=== PATIENT | female | born 1960 | race Caucasian/White ===

== ENCOUNTER → 2016-07-05 17:20 | Outpatient (CLI) | payer BC ==
[2016-02-23 05:58] VITALS: BMI 33.3
[~2016-07-05 17:20] MED LIST: BUT/APAP/CAF CAP PO; BUTALB-APAP-CA1 EACH PO; CEPHADYN PO; CLARITIN 10 MG10 MG PO; EDARBI40 MG PO; FLEXERIL10 MG PO; GEMFIBROZIL600 MG PO; HYDROCODON-ACE1 EAC7 PO; HYDROCODONE-APA1 TAB PO; MAXZIDE-25 MG T1 TAB PO; MINOCIN100 MG PO; MINOCYCLINE PO; MULTI-DAY VITAM1 TAB PO; NEURONTIN 300300 MG PO; ORTHO-EST0.75 MG PO; RELAFEN750 MG PO; REQUIP0.25 MG PO; SINGULAIR10 MG PO; TYLENOL PM1 TAB PO; ULTRAM50 MG PO; ZANAFLEX4 MG PO
== END | disposition home or self-care (01) ==
LOC: D.MAMMO 13:15
DX: Z12.31 Encounter for screening mammogram for malignant neoplasm of breast (principal)

== ENCOUNTER 2016-08-01 05:28 | Day surgery (SDC) | payer BC ==
[~2016-08-01] VITALS: Ht 165.1 cm; Wt 91.4 kg
[2016-08-01 13:52] VITALS: BP 143/78; Ht 165.1 cm; Wt 91.4 kg
[2016-08-01] MEDS ORDERED: HYDROCODONE-APA1 TAB PO (13:55)
[2016-08-01 13:59] LABS: HEMATOCRIT 37.9 % (36.0-48.0); HEMOGLOBIN 11.9 g/dL (12-16); MCH 25.6 pg (26.0-34.0); MCHC 31.4 g/dL (31.0-37.0); MCV 81.5 fL (80.0-100.0); MEAN PLATELET VOLUME 11.7 fL (7.4-10.4); RBC 4.65 10x6/uL (4.00-5.40); RDW 13.8 % (11.5-14.5); WBC 7.4 10x3/uL (4.8-10.8)
[2016-08-01 14:45] LABS: ANION GAP 17.2 mmol/L (8-16); CARBON DIOXIDE 26.3 mmol/L (21.0-32.0); CREATININE - SERUM 0.9 mg/dL (0.6-1.3); POTASSIUM - SERUM 3.5 mmol/L (3.5-5.1)
--- NOTE | 2016-08-01 15:28 | NUR ---
1505-RECD FROM GI LAB. ALERT. DR LAU HERE TO ROUND. 1510-FULL LIQUIDS SERVED. PASSING FLATUS.
--- NOTE | 2016-08-01 15:50 | NUR ---
1510-FULL LIQUIDS SERVED. PASSING FLATUS. 1530-IV D/C, VOIDED AND DRESSED. 1540-DISCHARGE INSTRUCTIONS REVIEWED. 1545-D/C HOME.
--- NOTE | 2016-08-03 19:32 | OP ---
PATIENT NAME: AHMET SANFORD MEDICAL RECORD: [id number] :60 LOCATION:D.OPS ADMISSION DATE: SURGEON: VINNY LAU DO DATE OF OPERATION: 08/01/2016 PROCEDURE: Colonoscopy with hot forceps polypectomy. INDICATIONS: Personal history of colon polyps, left lower quadrant abdominal pain, diarrhea. SCOPE: Olympus video pediatric colonoscope. MEDICATIONS: Propofol 410 mg IV per anesthesia. WITHDRAWAL TIME: 10 minutes. ESTIMATED BLOOD LOSS: Minimal. COMPLICATIONS: None. FINDINGS: Informed consent was given. The patient was made comfortable with the above medication. After reaching an adequate level of sedation by slow IV push, the patient was placed on her left side. A digital rectal examination was performed, and was normal. The endoscope was then advanced under direct visualization through the rectum to the cecum, with visualization of the terminal ileum, ileocecal valve, and appendiceal orifice. The scope was slowly withdrawn and mucosa was carefully examined. There was a single polyp visualized on this examination located in the proximal transverse colon. It was removed with hot forceps in 1 piece and completely retrieved. There was evidence of mild pandiverticulosis. Retroflexion was performed in the rectum and the views were normal. There were no other abnormalities visualized on this examination. The scope was withdrawn from the patient. The patient tolerated the procedure well and there were no complications. IMPRESSION: 1. Single proximal transverse colon polyp measuring approximately 3 mm in diameter, removed with hot forceps. 2. Mild pandiverticulosis. PLAN AND RECOMMENDATIONS: 1. Discharge home when recovery parameters are met. 2. Continue high-fiber diet. 3. Follow up biopsy specimen results. 4. Anticipate a recall colonoscopy timeline of 5 years. 5. The patient indicates that her bowels are regular; however, if the diarrhea returns, it is okay to use Imodium as needed. Further workup can be provided if the diarrhea returns. TRANSINT:[id number] Voice Confirmation ID: [id number] DOCUMENT ID: [id number] OPERATIVE REPORT [id number] AHMET SANFORD VINNY LAU DO at 1932 CC: [id number] DICTATION DATE: 08/01/16 1501 EXPERIENCE SPECIALIST: 08/01/16 2315 [facility] 08/01/16 [place] [address]
== END 2016-08-01 15:45 | disposition home or self-care (01) ==
LOC: D.OPS 05:28
PROVIDERS: Anesthesiology
DX: D12.3 Benign neoplasm of transverse colon (principal); R19.7 Diarrhea, unspecified; R10.32 Left lower quadrant pain; J45.909 Unspecified asthma, uncomplicated; I10 Essential (primary) hypertension; J44.9 Chronic obstructive pulmonary disease, unspecified; Z87.891 Personal history of nicotine dependence; Z01.812 Encounter for preprocedural laboratory examination

== ENCOUNTER → 2016-09-21 11:07 | Outpatient (CLI) | payer BC ==
[2016-08-01 13:52] VITALS: BMI 33.5
== END | disposition home or self-care (01) ==
LOC: D.CT 11:07
DX: R51 Headache (principal)

== ENCOUNTER → 2016-11-15 14:39 | Outpatient (CLI) | payer BC ==
[2016-08-01 13:52] VITALS: BMI 33.5
== END | disposition home or self-care (01) ==
LOC: D.MRI 14:39
DX: M54.12 Radiculopathy, cervical region (principal)

== ENCOUNTER → 2017-01-31 16:02 | Outpatient (CLI) | payer BC ==
[2016-08-01 13:52] VITALS: BMI 33.5
[~2017-01-31 16:02] MED LIST changes: +ADVAIR 250/501 DISK INH; +HYDROXYZINE HCL50 MG PO; +LIPITOR10 MG PO; +MELATONIN5 MG PO; +OXYCODONE HCL10 MG PO; +PROAIR HFA8.5 GM INH
== END | disposition home or self-care (01) ==
LOC: D.MRI 16:02
DX: M75.101 Unspecified rotator cuff tear or rupture of right shoulder, not specified as traumatic (principal)

== ENCOUNTER 2017-02-24 05:18 | Day surgery (SDC) | payer BC ==
[2017-02-23 13:34] LABS: HEMATOCRIT 38.4 % (36.0-48.0); HEMOGLOBIN 12.4 g/dL (12-16); MCH 26.6 pg (26.0-34.0); MCHC 32.3 g/dL (31.0-37.0); MCV 82.4 fL (80.0-100.0); MEAN PLATELET VOLUME 11.6 fL (7.4-10.4); RBC 4.66 10x6/uL (4.00-5.40); RDW 15.7 % (11.5-14.5)
[2017-02-23 13:48] LABS: ANION GAP 15.3 mmol/L (8-16); CARBON DIOXIDE 25.6 mmol/L (21.0-32.0); POTASSIUM - SERUM 3.9 mmol/L (3.5-5.1)
[~2017-02-24] VITALS: Ht 165.1 cm; Wt 83.0 kg
--- NOTE | ~2017-02-24 | OP ---
PATIENT NAME: AHMET SANFORD MEDICAL RECORD: [id number] :60 LOCATION:[facility] ADMISSION DATE: SURGEON: RICK JOHNSTON DO DATE OF OPERATION: 02/24/2017 PROCEDURE PERFORMED: Right shoulder arthroscopy with subacromial decompression and rotator cuff repair. PREOPERATIVE DIAGNOSES: Right rotator cuff tear and subacromial impingement. POSTOPERATIVE DIAGNOSES: Subacromial impingement with a pre- acromion os acromiale and sublabral Mcleod complex and rotator cuff tear. INDICATION FOR PROCEDURE: Ms. Sanford is a 56-year-old female who has come to the office as she had right shoulder pain for quite some time, pain with lifting and anything overhead. She wanted to have surgery and have it fixed after she had the MRI, which demonstrated the tear and she was consented for the procedure in the office and then signed the consent here for surgery. DESCRIPTION OF PROCEDURE: The patient was given a block in the preoperative area and taken to the operative suite, laid in the left lateral decubitus position with the right arm up and the right arm was prepped and draped in sterile fashion. The patient was intubated and given general anesthetic, given 900 mg clindamycin preop. A timeout was then performed and everyone is in agreement to correct side, site, and patient. Then, the right arm was prepped and draped in sterile fashion and hung with 10 pounds of traction off of the boom. Once this was done, the posterior portal was established with a spinal needle and then 16 cc of normal saline were injected into the shoulder joint itself expanding it. The posterior portal was then established with an 11-blade scalpel and the trocar was placed into the shoulder joint. The camera was then entered into the shoulder joint. The Mcleod complex was noted right away. The anterior portal was then established and the bicep tendon was not seen to have any tears or fraying as well as the superior labrum; however, the Reji complex was encountered and nothing was done to it. The subscapularis tendon was inspected and seen to be in very good shape and cartilage surface of the humerus did not have any chondromalacia nor did the glenoid. The rotator cuff tear of the supraspinatus was encountered at that time and seen and pictures were taken. I then went to the subacromial space and the subacromial decompression was done. The pre-acromial os acromial was then encountered and was left in place. However, subacromial decompression was done with the stable acromion as well as a PA os acromial due to the patient not having any symptoms. This was not removed or tried to be fused at that time. The AC joint was also encountered and seemed to be wide open. There were no arthritis seen and was left alone. At this point, the lateral portal then established for the subacromial decompression. At this point, we opened with a small incision over where the lateral portal was with 15 blade and the deltoid fascia was opened with the scissors and then Army-Mansion Del Sol were used to retract the deltoid until Weitlaner was put into place and then Army-Mansion Del Sol was held superiorly. Two anchors were then put just at the articular surface of the humerus after the area had been prepared and debrided and decorticated with the shaver as her bone was very soft. Two anchors were then put into place and then the suture tapes bit the rotator cuff and then 2 lateral row anchors were used. The lateral anterior anchor was put in first. The bone seemed to be very soft and then the posterior lateral anchor was used. Limb from each of the anterior and posterior anchors previously placed were put into each respectively. Small dog ear was seen OPERATIVE REPORT [id number] AHMET SANFORD anteriorly and a suture from the anchor in the anterior lateral row was used to put a suture through the dog ear and tied down to itself and had a nice reduction. There was a nice reduction of the rotator cuff. At that point, the wound was irrigated and picture was taken with the camera and then the deltoid fascia was closed with 2-0 Vicryl and the skin was closed with 2-0 Vicryl over the open part in an inverted interrupted fashion and then 4-0 Monocryl was ran under the skin in subcuticular fashion at the over part and the two anterior and posterior portals were closed each with an inverted interrupted suture of 4-0 Monocryl and then Dermabond was placed over that. Adaptic Telfa and Tegaderm were placed over each of the sites. The patient was placed in a sling and then taken to recovery after she was awakened in stable condition. Blood loss was minimal. COMPLICATIONS: None. TRANSINT:[id number] Voice Confirmation ID: [id number] DOCUMENT ID: [id number] RICK JOHNSTON DO at 0753 CC: [id number] DICTATION DATE: 02/24/171726 U.S. SENATOR: 02/24/17 180 [facility] 02/24/17 [id number] [place] [address]
[~2017-02-24 05:18] MED LIST changes: -HYDROXYZINE HCL50 MG PO; -MELATONIN5 MG PO; -OXYCODONE HCL10 MG PO
[2017-02-24] MEDS ORDERED: MELATONIN5 MG PO (09:51)
[2017-02-24 09:52] VITALS: BP 136/73; Ht 165.1 cm; Wt 83.0 kg
[2017-02-24] MEDS ORDERED: OXYCODONE HCL10 MG PO (17:18)
[2017-02-24] MEDS ORDERED: HYDROXYZINE HCL50 MG PO (17:18)
== END 2017-02-24 19:10 | disposition home or self-care (01) ==
LOC: D.OPS 05:18 → D.PAN 12:15 → D.OPS 14:00 → D.PAN 14:00 → D.OPS 19:10
PROVIDERS: Anesthesiology
DX: M75.121 Complete rotator cuff tear or rupture of right shoulder, not specified as traumatic (principal); J45.909 Unspecified asthma, uncomplicated; I10 Essential (primary) hypertension; J44.9 Chronic obstructive pulmonary disease, unspecified; E66.9 Obesity, unspecified; Z68.30 Body mass index [BMI] 30.0-30.9, adult; Z01.812 Encounter for preprocedural laboratory examination

== ENCOUNTER → 2018-03-27 15:13 | Outpatient (CLI) | payer BC ==
[2017-02-24 09:52] VITALS: BMI 30.5
[~2018-03-27 15:13] MED LIST changes: +HYDROXYZINE HCL50 MG PO; +MELATONIN5 MG PO; +OXYCODONE HCL10 MG PO
== END | disposition home or self-care (01) ==
LOC: D.CT 15:13
DX: G43.909 Migraine, unspecified, not intractable, without status migrainosus (principal)

== ENCOUNTER → 2018-05-15 15:54 | Outpatient (CLI) | payer BC ==
[2017-02-24 09:52] VITALS: BMI 30.5
== END | disposition home or self-care (01) ==
LOC: D.MRI 15:54
PROVIDERS: ATTEND Clinical Nurse Specialist Family Health
DX: S46.012A Strain of muscle(s) and tendon(s) of the rotator cuff of left shoulder, initial encounter (principal); X58.XXXA Exposure to other specified factors, initial encounter

== ENCOUNTER → 2018-05-29 18:43 | Outpatient (CLI) | payer BC ==
[2017-02-24 09:52] VITALS: BMI 30.5
== END | disposition home or self-care (01) ==
LOC: D.MAMMO 15:30
PROVIDERS: ATTEND Clinical Nurse Specialist Family Health
DX: Z12.31 Encounter for screening mammogram for malignant neoplasm of breast (principal)

== ENCOUNTER 2018-06-05 05:10 | Day surgery (SDC) | payer BC ==
[2018-06-04 10:20] LABS: HEMATOCRIT 39.3 % (36.0-48.0); HEMOGLOBIN 12.7 g/dL (12-16); MCH 27.1 pg (26.0-34.0); MCHC 32.3 g/dL (31.0-37.0); MEAN PLATELET VOLUME 11.2 fL (7.4-10.4); RBC 4.68 10x6/uL (4.00-5.40); RDW 14.8 % (11.5-14.5); WBC 6.4 10x3/uL (4.8-10.8)
[2018-06-04 10:30] LABS: ANION GAP 14.8 mmol/L (8-16); CALCIUM 9.5 mg/dL (8.5-10.1); CARBON DIOXIDE 25.9 mmol/L (21.0-32.0); CREATININE - SERUM 0.9 mg/dL (0.6-1.3); POTASSIUM - SERUM 3.7 mmol/L (3.5-5.1)
[~2018-06-05] VITALS: Ht 170.2 cm; Wt 83.9 kg
[2018-06-05] MEDS ORDERED: SYMBICORT 16010.2 GM INH (06:12)
[2018-06-05] MEDS ORDERED: HYDROCODON-ACE1 EA10 PO (06:15)
[2018-06-05] MEDS ORDERED: NIASPAN500 MG PO (06:16)
[2018-06-05] MEDS ORDERED: FISH OIL 1,0001 CA1 PO (06:16)
[2018-06-05] MEDS ORDERED: FOLIC ACID1 MG PO (06:16)
[2018-06-05 06:19] VITALS: BP 141/66; Ht 170.2 cm; Wt 83.9 kg
[2018-06-05] MEDS ORDERED: VISTARIL50 MG PO (10:45)
[2018-06-05] MEDS ORDERED: OXYCODONE HCL5 M1 PO (10:45)
--- NOTE | 2018-06-05 12:54 | OP ---
PATIENT NAME: AHMET SANFORD MEDICAL RECORD: [id number] :60 LOCATION:[facility] ADMISSION DATE: SURGEON: ELLIOT JOHNSTON DO DATE OF OPERATION: 06/05/2018 PROCEDURE PERFORMED: Left shoulder scope with mini open rotator cuff repair, subacromial decompression, distal clavicle excision, and biceps tenodesis. PREOPERATIVE DIAGNOSES: Left shoulder rotator cuff tear, SLAP tear, subacromial impingement, and AC joint arthritis. POSTOPERATIVE DIAGNOSES: Left shoulder rotator cuff tear, SLAP tear, subacromial impingement, and AC joint arthritis. INDICATIONS: Ms. Sanford is a 57-year-old female who has had left shoulder pain for quite some time. She said it felt similar to her right shoulder. Her right shoulder she had a rotator cuff tear and SLAP tear, the same thing little over a year ago. She was tired of dealing with it and got an MRI, which showed the findings. She was aware of the risks and benefits of the procedure. It was discussed with her including fracture, bleeding, damage to nerves and vessels and infection and she signed the consent. SURGEON: Elliot Johnston DO AML ANALYST: Harshad Silverman, advanced nurse practitioner. He assisted with retraction and closing. This procedure could not have been performed without him. He also held the camera while I worked. DESCRIPTION OF PROCEDURE: The patient received a block by anesthesia in the preoperative area and taken to the operative suite, laid in the right lateral decubitus position with the left shoulder up. Axillary roll was placed in the axilla. The left shoulder was prepped and draped in sterile fashion. A timeout was performed and everyone was in agreement with the correct side, site, patient and procedure. The procedure then began with insufflating the shoulder joint with 60 mL of normal saline and then the 11 blade scalpel was used to establish a posterior portal. Trocar was then entered in the joint and the camera was entered and the SLAP tear seen right away as well as the rotator cuff tear through the supraspinatus. The anterior portal was then established with an 18-gauge spinal needle and an 11-blade scalpel and the trocar was entered in and then a burner was brought in. A biceps tenotomy was done at that point. The subscapularis tendon was inspected and seemed to be in good shape as well as the rest of the joint. The inferior gutter did not show any loose bodies. The cartilage was not worn out either. We then entered the subacromial space. The lateral portal was established with an 18-gauge spinal needle and 11-blade scalpel. Burner was brought in and cleaned off the acromion as well as the distal clavicle and the distal clavicle excision was done, opened the joint to approximately 7 mm and then the subacromial decompression was done, the anterolateral acromion. The spur was taken off. We then converted to open and dissected down to the rotator cuff tear. The greater tuberosity was decorticated and a SpeedBridge was used. Two medial anchors were used and the tendon was a bit through with FiberTape of the supraspinatus tendon getting good bite in it and this was pulled over laterally with 2 lateral anchors crossing stitch from each of the medial anchors. I had good compression of the rotator cuff and a good repair. The site was then irrigated and closed with 0 Vicryl in the deltoid fascia and then 2-0 Vicryl in an inverted interrupted fashion, 4-0 OPERATIVE REPORT [id number] AHMET SANFORD Monocryl ran on the skin. While that was being done by Cezar Silverman, I went to the anterior humerus, made a small incision, and made careful dissection down to the bicep tendon and pulled it out through the incision, whipstitched and put a button on it and put a unicortical hole in the humerus. The button then passed through the hole and then the tendon was cinched down to that. This was tied and then a free needle was used to stitch through the bicep tendon and this was tied down as well. The excess tendon and suture was cut at that time. The site was irrigated, closed with 2-0 Vicryl and 4-0 Monocryl ran on the skin and then a Prineo Dermabond with glue was placed on each of the incision sites. The portal sites, anterior and posterior, were closed with 4-0 Monocryl prior to that. The patient was awakened and taken to recovery room and placed in a sling in stable condition. BLOOD LOSS: Minimal. COMPLICATIONS: None. TRANSINT:[id number] Voice Confirmation ID: [id number] DOCUMENT ID: [id number] ELLIOT JOHNSTON DO at 1254 CC: [id number] DICTATION DATE: 06/05/18 1051 CLOTHES IRONER: 06/05/18 1250 [facility] [address] [id number]
--- NOTE | 2018-06-05 12:54 | NUR ---
1245 DRESSED [facility]IST[facility]. AWAKE & ALERT. GIVEN DISCHARGE INFORMATION INCLUDING: RX'S 2: VISTARIL & OXYCODONE IR, MED REC., DR. JOHNSTON'S SHOULDER SURGERY POST-OPERATIVE INSTRUCTIONS, PENDULUM EXERCISES SHEET, & [facility] OUTPATIENT DISCHARGE INSTRUCTIONS. PT VOICED UNDERSTANDING. TO PRIVATE CAR PER WHEELCHAIR BY VOLUNTEER. HOME WITH BROTHER/KHURRAM LO. Mckenzie PEREZ R.N.
== END 2018-06-05 12:45 | disposition home or self-care (01) ==
LOC: D.OPS 05:10 → D.PAN 08:10 → D.OPS 08:10 → D.PAN 08:15 → D.OPS 12:45
PROVIDERS: Anesthesiology; ATTEND Orthopaedic Surgery
DX: M75.102 Unspecified rotator cuff tear or rupture of left shoulder, not specified as traumatic (principal); S43.432A Superior glenoid labrum lesion of left shoulder, initial encounter; X58.XXXA Exposure to other specified factors, initial encounter; M75.42 Impingement syndrome of left shoulder; M13.812 Other specified arthritis, left shoulder; Z01.812 Encounter for preprocedural laboratory examination

== ENCOUNTER → 2018-09-18 10:57 | Outpatient (CLI) | payer BC ==
[2018-06-05 06:19] VITALS: BMI 29.0
[~2018-09-18 10:57] MED LIST changes: +FISH OIL 1,0001 CA1 PO; +FOLIC ACID1 MG PO; +HYDROCODON-ACE1 EA10 PO; +NIASPAN500 MG PO; +OXYCODONE HCL5 M1 PO; +SYMBICORT 16010.2 GM INH; +VISTARIL50 MG PO
== END | disposition home or self-care (01) ==
LOC: D.MRI 10:57
PROVIDERS: ATTEND Family Medicine
DX: M54.2 Cervicalgia (principal)

== ENCOUNTER 2018-10-04 07:28 | Day surgery (SDC) | payer BC ==
[2018-10-02 10:05] LABS: HEMATOCRIT 39.8 % (36.0-48.0); HEMOGLOBIN 13.3 g/dL (12-16); MCH 28.5 pg (26.0-34.0); MCHC 33.4 g/dL (31.0-37.0); MCV 85.4 fL (80.0-100.0); RBC 4.66 10x6/uL (4.00-5.40); WBC 9.3 10x3/uL (4.8-10.8)
[2018-10-02 10:14] LABS: ANION GAP 7.1 mmol/L (8-16); CALCIUM 9.2 mg/dL (8.5-10.1); CARBON DIOXIDE 28.1 mmol/L (21.0-32.0); CREATININE - SERUM 0.9 mg/dL (0.6-1.3); POTASSIUM - SERUM 3.2 mmol/L (3.5-5.1)
[~2018-10-04] VITALS: Ht 165.1 cm; Wt 88.2 kg
[2018-10-04] VITALS (13 sets, daily range): BP systolic 112–152; BP diastolic 66–85; Ht 165.1 cm; Wt 88.2 kg
[~2018-10-04 07:28] MED LIST changes: +HYDROCODON-ACE1 EA10
--- NOTE | 2018-10-04 14:00 | NUR ---
PT TAKEN TO ICU ROOM 1. INITIAL ASSESSMENT COMPLETED. GAVE PRESCRIBED MEDS. CALL LIGHT IN REACH BED IN LOW POSITION AND LOCKED. WILL CONTINUE TO MONITOR
--- NOTE | 2018-10-04 17:00 | NUR ---
MEAL TRAY WAS GIVEN TO PATIENT. NO OTHER NEEDS NOTED AT THIS TIME. VSS WILL CONTINUE TO MONITOR
[2018-10-05] VITALS (8 sets, daily range): BP systolic 123–140; BP diastolic 72–82
--- NOTE | 2018-10-05 07:00 | NUR ---
PT REPORT RECEIVED FROM SUPERINTENDENT FISH HATCHERY NURSE. ENTERED CLIENTS ROOM AND ASSISTED TO BEDSIDE COMMODE. NO SIGNS OF VISIBLE DISTRESS NOTED. WILL CONTINUE TO MONITOR
--- NOTE | 2018-10-05 09:00 | NUR ---
PT ASSISTED TO BEDSIDE COMMODE. TOLERATED WELL. ASSISTED BACK INTO BED ALSO TOLERATED WELL. BED IN LOW POSITION AND LOCKED, CALL LIGHT WITHIN REACH. NO SIGNS OF DISTRESS OR ANY NEEDS NOTED. WILL CONTINUE TO MONITOR
--- NOTE | 2018-10-11 14:02 | OP ---
PATIENT NAME: AHMET SANFORD MEDICAL RECORD: [id number] :60 LOCATION:[facility] ADMISSION DATE: SURGEON: ROSSI DAO MD DATE OF OPERATION: 10/04/2018 PREOPERATIVE DIAGNOSES: Osteophyte formation and disc herniation at C4-C5 and C5-C6 with cervical radiculopathies. POSTOPERATIVE DIAGNOSES: Osteophyte formation and disc herniation at C4-C5 and C5-C6 with cervical radiculopathies. PROCEDURE: Anterior cervical discectomy and fusion at C4-C5 and C5-C6 with a PEEK interbody cages and Natacha bone stem cell allograft. A separate anterior cervical plate and screws from [facility], removal of osteophytes, microscopic illumination. SURGEON: Rossi Dao MD DESCRIPTION AND TECHNIQUE: After induction of general endotracheal anesthesia, the patient was positioned supine on the operating table with the interscapular roll. The neck was prepped and draped in usual sterile fashion. Fluoroscopic x-ray and spinal needle localized at C4-C5 interspace. After infiltration of 1:100,000 epinephrine and 1% lidocaine, a transverse skin incision was carried out from the midline to the sternocleidomastoid muscle. The platysma was incised with #15-blade. Using blunt and sharp dissection with Metzenbaum scissors, I proceeded in the avascular plane medial to the carotid sheath. The C4-C5 interspace was identified with fluoroscopic x-ray and a spinal needle. The longus colli muscles were elevated from bodies of C4, C5, and C6. A self-retaining retractor was placed deep to the longus colli muscles. The C4-C5 interspace was identified with fluoroscopic x-ray and a spinal needle. [place] distracting pins were placed by the C4, C5, and C6. Disc material was incised with a #11 blade at each level. Disc material was removed with pituitary rongeurs and curettes. Osteophytes were drilled away posteriorly with a microscope and Midas Moustapha drill. The posterior longitudinal ligament was removed with Cloward rongeurs. The dura was decompressed at the conclusion of this at each level at C4-C5 and C5-C6. A PEEK interbody cage filled with Natacha bone allograft was placed in each interspace at C4-C5 and C5-C6. The Churchton pins were removed. A [employer] anterior cervical plate and screws was used to span the C4, C5, and C6 interspaces. Self-drilling screws were placed through the holes and plate. Locking cams were tightened down over the screw heads. Good position hardware was confirmed with fluoroscopic x-ray. A Meticulous hemostasis was maintained throughout the wounds. The platysma and subdermal layer closed with interrupted 3-0 Vicryl suture. The skin was closed with Steri-Strips and benzoin. A sterile dressing was applied to the wound. The patient was awakened in good condition and taken to recovery. All counts were reported as correct. Estimated blood loss was minimal. TRANSINT:[id number] Voice Confirmation ID: [id number] DOCUMENT ID: [id number] OPERATIVE REPORT [id number] AHMET SANFORD JOHN MD at 1402 CC: [id number] DICTATION DATE: 10/11/18 0744 CITY PLANNER: 10/11/18 0821 [facility] 10/05/[address] [id number]
== END 2018-10-05 11:30 | disposition home or self-care (01) ==
LOC: D.OPS 07:28 → D.PAN 09:30 → D.ICU 13:23 → D.OPS 10-05 11:30
PROVIDERS: Anesthesiology; ATTEND Neurological Surgery
DX: M50.121 Cervical disc disorder at C4-C5 level with radiculopathy (principal); M25.78 Osteophyte, vertebrae; Z01.812 Encounter for preprocedural laboratory examination